=== PATIENT | male | born 1965 | race Caucasian/White ===

== ENCOUNTER 2018-02-03 21:42 | Emergency (ER) | payer MEDICAID ==
[~2018-02-03] VITALS: Ht 165.1 cm; Wt 102.7 kg
[~2018-02-03 21:42] MED LIST: NO HOME MEDS
[2018-02-03] MEDS ORDERED: KETOROLAC 30 MG/1 ML ONE (22:27)
[2018-02-03] MEDS ORDERED: METHOCARBAMOL 750 MG TABLET ONE (22:27)
[2018-02-03] MEDS ORDERED: METHOCARBAMOL 750 MG TABLET PO ONE (22:30)
[2018-02-03] MEDS ORDERED: KETOROLAC 30 MG/1 ML IM ONE (22:30)
[2018-02-03 23:20] VITALS: BP 138/78
== END 2018-02-03 23:21 | disposition home or self-care (01) ==
LOC: ED 23:20
DX: M62.830 Muscle spasm of back (principal); G89.11 Acute pain due to trauma; I10 Essential (primary) hypertension
CPT/HCPCS: 72072; 73030; 96372; 99284; J1885

== ENCOUNTER 2018-04-24 01:42 | Emergency (ER) | payer MEDICAID ==
[~2018-04-24] VITALS: Ht 165.1 cm; Wt 100.0 kg
[2018-04-24 01:44] VITALS: BP 175/102
[2018-04-24 03:09] LABS: BASOPHILS # (AUTO) 0.07 x10^3/uL (0-0.1); BASOPHILS % (AUTO) 0 % (0-1); EOSINOPHILS # (AUTO) 0.11 x10^3/uL (0-0.4); EOSINOPHILS % (AUTO) 1 % (1-7); LYMPHOCYTES # (AUTO) 2.19 x10^3/uL (1-3.4); LYMPHOCYTES % (AUTO) 14 % (22-44); MD NO; MEAN CORPUSCULAR HEMOGLOBIN 31.6 pg (27.5-34.5); MEAN CORPUSCULAR HGB CONC 34.8 g/dL (33.2-36.2); MEAN CORPUSCULAR VOLUME 90.7 fL (81-97); MEAN PLATELET VOLUME 8.9 fL (7.4-10.4); MONOCYTES # (AUTO) 1.44 x10^3/uL (0.2-0.8); MONOCYTES % (AUTO) 9 % (2-9); NEUTROPHILS % (AUTO) 76 % (42-75); PLATELET COUNT 167 x10^3/uL (130-400); RED BLOOD COUNT 4.78 x10^6/uL (4.38-5.82); RED CELL DISTRIBUTION WIDTH 13.5 % (9.4-14.8)
[2018-04-24 03:21] LABS: ALANINE AMINOTRANSFERASE 72 U/L (12-78); ALBUMIN 2.7 g/dL (3.4-5.0); ANION GAP 6 mmol/L (5-15); CALCIUM 8.1 mg/dL (8.5-10.1); CHLORIDE 106 mmol/L (98-107); CREATININE 0.83 mg/dL (0.7-1.3)
[2018-04-24 03:23] LABS: ALKALINE PHOSPHATASE 100 U/L (45-117); BILIRUBIN,TOTAL 0.4 mg/dL (0.2-1.0); TOTAL PROTEIN 7.6 g/dL (6.4-8.2)
[2018-04-24] MEDS ORDERED: ONDANSETRON 2MG/ML, 2ML IVPush PRN (05:00)
[2018-04-24] MEDS ORDERED: CLINDAMYCIN PMX 600MG/50ML 50 ML IV ONE (05:00)
== END 2018-04-24 04:54 | disposition left against medical advice (07) ==
LOC: ED 04:48
DX: L03.115 Cellulitis of right lower limb (principal); I10 Essential (primary) hypertension; D72.829 Elevated white blood cell count, unspecified; F17.200 Nicotine dependence, unspecified, uncomplicated
CPT/HCPCS: 36415; 80053; 85025; 87040; 99285

== ENCOUNTER 2018-05-07 10:55 | Emergency (ER) | payer MEDICAID ==
[~2018-05-07] VITALS: Ht 165.1 cm; Wt 103.2 kg
[2018-05-07 12:23] LABS: BASOPHILS # (AUTO) 0.16 x10^3/uL (0-0.1); BASOPHILS % (AUTO) 2 % (0-1); EOSINOPHILS # (AUTO) 0.19 x10^3/uL (0-0.4); EOSINOPHILS % (AUTO) 2 % (1-7); LYMPHOCYTES # (AUTO) 2.63 x10^3/uL (1-3.4); LYMPHOCYTES % (AUTO) 27 % (22-44); MD NO; MEAN CORPUSCULAR HEMOGLOBIN 30.5 pg (27.5-34.5); MEAN CORPUSCULAR HGB CONC 33.8 g/dL (33.2-36.2); MEAN CORPUSCULAR VOLUME 90.2 fL (81-97); MEAN PLATELET VOLUME 8.4 fL (7.4-10.4); MONOCYTES # (AUTO) 1.29 x10^3/uL (0.2-0.8); MONOCYTES % (AUTO) 13 % (2-9); NEUTROPHILS # (AUTO) 5.43 x10^3/uL (1.8-6.8); NEUTROPHILS % (AUTO) 56 % (42-75); PLATELET COUNT 242 x10^3/uL (130-400); RED BLOOD COUNT 4.86 x10^6/uL (4.38-5.82); RED CELL DISTRIBUTION WIDTH 13.8 % (9.4-14.8)
[2018-05-07 12:36] LABS: ALBUMIN 2.7 g/dL (3.4-5.0); ANION GAP 5 mmol/L (5-15); CALCIUM 8.6 mg/dL (8.5-10.1); CHLORIDE 107 mmol/L (98-107); CREATININE 1.03 mg/dL (0.7-1.3)
[2018-05-07] MEDS ORDERED: CEFTRIAXONE 1,000 MG IM ONE (13:00)
[2018-05-07 13:03] VITALS: BP 155/101
== END 2018-05-07 13:08 | disposition home or self-care (01) ==
LOC: ED 13:02
DX: L03.115 Cellulitis of right lower limb (principal); L03.116 Cellulitis of left lower limb; I10 Essential (primary) hypertension
CPT/HCPCS: 36415; 80048; 82040; 85025; 99284

== ENCOUNTER 2018-07-17 19:44 | Emergency (ER) | payer MEDICAID ==
[~2018-07-17] VITALS: Ht 165.1 cm; Wt 109.3 kg
[2018-07-17 19:50] VITALS: BP 178/94
[2018-07-17] MEDS ORDERED: KETOROLAC 30 MG/1 ML ONE (20:15)
[2018-07-17] MEDS ORDERED: KETOROLAC 30 MG/1 ML IM ONE (20:30)
== END 2018-07-17 21:16 | disposition home or self-care (01) ==
LOC: ED 20:20
DX: M77.11 Lateral epicondylitis, right elbow (principal); Z88.0 Allergy status to penicillin; X58.XXXA Exposure to other specified factors, initial encounter; I10 Essential (primary) hypertension; Y93.89 Activity, other specified; Y99.8 Other external cause status; Y92.009 Unspecified place in unspecified non-institutional (private) residence as the place of occurrence of the external cause
CPT/HCPCS: 73080; 96372; 99284; J1885

== ENCOUNTER 2018-10-29 17:07 | Emergency (ER) | payer MEDICAID ==
[~2018-10-29] VITALS: Ht 170.2 cm; Wt 110.0 kg
[2018-10-29 17:23] VITALS: BP 164/110
--- NOTE | 2018-10-29 17:32 | NUR ---
NORBERT SMALL, AT BEDSIDE TO EVALUATE PT.
--- NOTE | 2018-10-29 17:39 | NUR ---
PT TO IMAGING, WITH TECH, VIA WHEELCHAIR.
[2018-10-29] MEDS ORDERED: KETOROLAC 30 MG/1 ML IM ONE (18:00)
[2018-10-29] MEDS ORDERED: METHOCARBAMOL 750 MG TABLET PO ONE (18:00)
[2018-10-29] MEDS ORDERED: METHOCARBAMOL 750 MG TABLET ONE (18:02)
[2018-10-29] MEDS ORDERED: KETOROLAC 30 MG/1 ML ONE (18:02)
[2018-10-29] MEDS ORDERED: IBUP-1222 PO (18:08)
[2018-10-29] MEDS ORDERED: TRIA15CR3 TP (18:08)
[2018-10-29] MEDS ORDERED: HYDR25TA6 PO (18:08)
== END 2018-10-29 18:25 | disposition home or self-care (01) ==
LOC: ED 18:19
DX: S16.1XXA Strain of muscle, fascia and tendon at neck level, initial encounter (principal); M76.61 Achilles tendinitis, right leg; I10 Essential (primary) hypertension; F17.200 Nicotine dependence, unspecified, uncomplicated; X58.XXXA Exposure to other specified factors, initial encounter; Y93.89 Activity, other specified; Y92.89 Other specified places as the place of occurrence of the external cause; Y99.8 Other external cause status
CPT/HCPCS: 72050; 73650; 96372; 99283; J1885

== ENCOUNTER 2018-12-21 07:36 | Inpatient (IN) | payer MEDICAID ==
[~2018-12-21] VITALS: Ht 165.1 cm; Wt 111.5 kg
[~2018-12-21 07:36] MED LIST changes: +HYDR25TA6 PO; +IBUP-1222 PO; +TRIA15CR3 TP
[2018-12-21] MEDS ORDERED: ACETAMINOPHEN 500 MG TABLET PO ONE (08:30)
[2018-12-21] MEDS ORDERED: KETOROLAC 30 MG/1 ML IM ONE (08:30)
[2018-12-21] MEDS ORDERED: ACETAMINOPHEN 500 MG TABLET ONE (08:35)
[2018-12-21] MEDS ORDERED: KETOROLAC 30 MG/1 ML ONE ×2 (08:35→16:55)
--- NOTE | 2018-12-21 08:55 | NUR ---
PT PRESENTS TO ED WITH C/O 'PAIN ALL OVER' SINCE LAST PM. PT DENIES ANY AGGREVATING INJURY, REPORTS + METH USE YESTERDAY. IV ESTABLISHED, MEDICATED WITH IM TORADOL ORDERED. NOTED REDNESS AND HEAT TO LOWED EXT X 2. SPO2 90% ON ROOM AIR, INCREASED TO 95% WITH SUPPLEMENTAL 02. CALL LIGHT WITHIN REACH, SIDE RAILS UP X 2.
[2018-12-21 09:00] LABS: MEAN CORPUSCULAR HEMOGLOBIN 30.2 pg (27.5-34.5); MEAN CORPUSCULAR HGB CONC 33.7 g/dL (33.2-36.2); MEAN CORPUSCULAR VOLUME 89.6 fL (81-97); MEAN PLATELET VOLUME 9.2 fL (7.4-10.4); PLATELET COUNT 129 x10^3/uL (130-400); RED BLOOD COUNT 5.76 x10^6/uL (4.38-5.82); RED CELL DISTRIBUTION WIDTH 13.9 % (9.4-14.8)
[2018-12-21] MEDS ORDERED: SODIUM CHLORIDE 0.9% 1,000ML IVBOLUS ONE (09:00)
[2018-12-21 09:15] LABS: ALANINE AMINOTRANSFERASE 107 U/L (12-78); ALBUMIN 3.2 g/dL (3.4-5.0); ANION GAP 7 mmol/L (5-15); CHLORIDE 103 mmol/L (98-107); CREATININE 1.09 mg/dL (0.7-1.3)
[2018-12-21 09:17] LABS: ALKALINE PHOSPHATASE 98 U/L (45-117); TOTAL PROTEIN 8.2 g/dL (6.4-8.2)
[2018-12-21 09:39] LABS: MICROSCOPIC NOT IND
[2018-12-21 09:45] LABS: CULTURE INDICATED? NO
--- NOTE | 2018-12-21 10:00 | NUR ---
RECEIVED REPORT FROM KATE Vee RN. PT RESTING IN BED IN NAD. WAITING FOR FLU RESULT.
[2018-12-21 10:05] LABS: MD YES
[2018-12-21 10:11] LABS: <PLATELET ESTIMATE> DECREASED; <PLT MORPHOLOGY> NORMAL PLT MORPH; <RBC MORPHOLOGY> NORMAL; BAND#(MANUAL) 4.02 x10^3/uL; BANDS%(MANUAL) 15 % (0-7); LYMPHS% (MANUAL) 3 % (22-44); MONOS#(MANUAL) 1.61 x10^3/uL (0.3-2.7); MONOS% (MANUAL) 6 % (2-9); SEG#(MANUAL) 20.37 x10^3/uL (1.8-6.8); SEGS% (MANUAL) 76 % (42-75)
[2018-12-21 10:14] LABS: RAPID INFLUENZA A Negative (Negative); RAPID INFLUENZA B Negative (Negative)
--- NOTE | 2018-12-21 10:37 | NUR ---
CHART UP FOR MD RECHECK. PT AWARE.
[2018-12-21] MEDS ORDERED: VANCOMYCIN 1,600 MG in SODIUM CHLORIDE 0.9% 250 ML IV ONE (11:00)
[2018-12-21] MEDS ORDERED: CEFTRIAXONE PMX 1GM/50ML 50 ML IV ONE (11:00)
[2018-12-21] MEDS ORDERED: VANCOMYCIN PER PHARMACY MC ONE (11:00)
[2018-12-21] MEDS ORDERED: CEFTRIAXONE PMX 1GM/50ML 50 ML ONE (11:07)
[2018-12-21 11:14] LABS: AMPHETAMINE SCREEN, URINE Positive (Negative); BARBITURATE SCREEN, URINE Negative (Negative); BENZODIAZEPINE SCREEN, URINE Negative (Negative); CANNABINOID SCREEN, URINE Negative (Negative); COCAINE SCREEN, URINE Negative (Negative); METHADONE SCREEN, URINE Negative (Negative); OPIATE SCREEN, URINE Negative (Negative)
--- NOTE | 2018-12-21 11:14 | NUR ---
ANTIBIOTICS STARTED AFTER BLOOD CULTURES X 2 WERE DRAWN. PT SLEEPING IN NAD, BUT ASKING FOR FOOD WHEN AWOKEN.
--- NOTE | 2018-12-21 11:34 | NUR ---
PT TO CT. WILL WAIT FOR CT RESULTS BEFORE PT CAN EAT.
[2018-12-21] MEDS ORDERED: OMNIPAQUE 350 MG/ML, 100ML BOTTLE ONE (11:43)
--- NOTE | 2018-12-21 11:51 | NUR ---
PT BACK FROM CT. IV HAD BACKFLOWED AND ROCEPHIN HAD STOPPED. IV FLUSHED AND ROCEPHIN RUNNING AGAIN.
[2018-12-21] MEDS ORDERED: KETOROLAC 30 MG/1 ML IM PRN (12:00)
[2018-12-21] MEDS ORDERED: ACETAMINOPHEN 325 MG TABLET PO PRN (12:00)
[2018-12-21] MEDS ORDERED: BACLOFEN 10 MG TABLET PO PRN (12:00)
[2018-12-21] MEDS ORDERED: hydrALAzine 20 MG/ML, 1ML IVPush PRN (12:00)
[2018-12-21 12:59] LABS: CREATINE KINASE, TOTAL 123 U/L (39-308); TROPONIN I < 0.015 ng/mL (0.000-0.045)
--- NOTE | 2018-12-21 13:30 | NUR ---
PT GIVEN MEAL TRAY. WAITING FOR MEDICAL BED.
[2018-12-21 13:44] LABS: HCT (SEDRATE) 51.6 % (39.2-51.8)
--- NOTE | 2018-12-21 14:00 | NUR ---
PT GIVEN BEAR PAW TO KEEP WARM. TEMP WAS 97.9.
[2018-12-21] MEDS: D5%-0.45NACL+KCL 20MEQ 1,000 ML IV SCH (15:32)
[2018-12-21] MEDS ORDERED: hydrALAzine 20 MG/ML, 1ML ONE (15:37)
--- NOTE | 2018-12-21 15:40 | NUR ---
PT MEDICATED FOR BP OF 183/105. US BEING DONE AT BEDSIDE. PT DENIES ANY PAIN AT THIS TIME.
--- NOTE | 2018-12-21 16:20 | NUR ---
REPOR TO KATE Vee RN FOR ENRIQUE BRIONES.
[2018-12-21] MEDS ORDERED: ENOXAPARIN 40 MG/0.4 ML ONE (16:48)
[2018-12-21] MEDS ORDERED: ACETAMINOPHEN 325 MG TABLET ONE (16:55)
--- NOTE | 2018-12-21 16:59 | NUR ---
PT MEDICATED FOR FEVER AND PAIN. BP 160/83 AFTER HYDRALAZINE.
[2018-12-21] MEDS ORDERED: ENOXAPARIN 40 MG/0.4 ML SQ SCH (17:00)
--- NOTE | 2018-12-21 17:29 | NUR ---
ATTEMPTED TO CALL REPORT BUT RN DISCHARGING ANOTHER PT.
[2018-12-21] MEDS ORDERED: KETOROLAC 30 MG/1 ML IV PRN (18:00)
[2018-12-21 18:11] LABS: TROPONIN I < 0.015 ng/mL (0.000-0.045)
[2018-12-21 19:15] VITALS: BP 115/75
[2018-12-21 21:33] VITALS: BP 115/75
[2018-12-22] MEDS: D5%-0.45NACL+KCL 20MEQ 1,000 ML IV SCH (01:07)
[2018-12-22 01:42] VITALS: BP 137/78
[2018-12-22 06:02] LABS: MEAN CORPUSCULAR HEMOGLOBIN 30.8 pg (27.5-34.5); MEAN CORPUSCULAR HGB CONC 34.3 g/dL (33.2-36.2); MEAN PLATELET VOLUME 9.2 fL (7.4-10.4); PLATELET COUNT 111 x10^3/uL (130-400); RED BLOOD COUNT 5.18 x10^6/uL (4.38-5.82); RED CELL DISTRIBUTION WIDTH 14.1 % (9.4-14.8)
[2018-12-22 06:18] LABS: TROPONIN I < 0.015 ng/mL (0.000-0.045)
[2018-12-22 06:19] LABS: CHLORIDE 106 mmol/L (98-107)
[2018-12-22 06:25] LABS: ALANINE AMINOTRANSFERASE 69 U/L (12-78); ALBUMIN 2.4 g/dL (3.4-5.0); ALKALINE PHOSPHATASE 90 U/L (45-117); ANION GAP 4 mmol/L (5-15); BILIRUBIN,TOTAL 0.7 mg/dL (0.2-1.0)
[2018-12-22 06:31] LABS: MD YES
[2018-12-22 06:35] LABS: BAND#(MANUAL) 0.85 x10^3/uL; BANDS%(MANUAL) 4 % (0-7); LYMPH#(MANUAL) 1.06 x10^3/uL (1-3.4); LYMPHS% (MANUAL) 5 % (22-44); MONOS#(MANUAL) 0.85 x10^3/uL (0.3-2.7); MONOS% (MANUAL) 4 % (2-9); SEG#(MANUAL) 18.44 x10^3/uL (1.8-6.8); SEGS% (MANUAL) 87 % (42-75)
[2018-12-22 06:36] LABS: <PLATELET ESTIMATE> DECREASED; <PLT MORPHOLOGY> NORMAL PLT MORPH; <RBC MORPHOLOGY> NORMAL
[2018-12-22] MEDS ORDERED: AMPICILLIN/SULBACTAM 3 GM in SODIUM CHLORIDE 0.9% 100 ML IV SCH (07:30)
[2018-12-22 08:00] VITALS: BP 136/84
[2018-12-22] MEDS: SODIUM CHLORIDE 0.9% 1,000 ML IV SCH ×2 (08:24→23:10)
[2018-12-22] MEDS: AMPICILLIN/SULBACTAM 3 GM in SODIUM CHLORIDE 0.9% 50 ML IV SCH ×3 (08:25→19:36)
[2018-12-22] MEDS: HEPARIN 5,000 UNITS/ML, 1ML SQ SCH ×3 (08:25→23:10)
[2018-12-22] MEDS: GUAIFENESIN 200 MG TABLET PO SCH ×2 (08:25→19:36)
[2018-12-22] MEDS ORDERED: KETOROLAC 30 MG/1 ML IV PRN (12:00)
[2018-12-22] MEDS: NICOTINE 14MG/24 HR PATCH.TD24 TD SCH ×2 (12:22→13:51)
[2018-12-22 14:50] VITALS: BP 132/81
[2018-12-22] MEDS: CARVEDILOL 3.125 MG TABLET PO SCH (16:47)
[2018-12-22] MEDS: ACETAMINOPHEN 325 MG TABLET PO PRN (16:48)
[2018-12-22 18:54] VITALS: BP 134/83
[2018-12-23 01:47] VITALS: BP 159/97
[2018-12-23] MEDS: AMPICILLIN/SULBACTAM 3 GM in SODIUM CHLORIDE 0.9% 50 ML IV SCH ×4 (02:05→20:07)
[2018-12-23] MEDS: CARVEDILOL 3.125 MG TABLET PO SCH (06:20)
[2018-12-23 06:21] LABS: ALBUMIN 2.4 g/dL (3.4-5.0); BILIRUBIN, DIRECT 0.1 mg/dL (0.1-0.2)
[2018-12-23] MEDS: ACETAMINOPHEN 325 MG TABLET PO PRN ×2 (06:22→15:24)
[2018-12-23 06:23] LABS: BILIRUBIN,INDIRECT 0.3 mg/dL (0.0-2.0); BILIRUBIN,TOTAL 0.4 mg/dL (0.2-1.0); TOTAL PROTEIN 7.4 g/dL (6.4-8.2)
[2018-12-23 06:27] LABS: BASOPHILS % (AUTO) 0 % (0-1); EOSINOPHILS # (AUTO) 0.18 x10^3/uL (0-0.4); EOSINOPHILS % (AUTO) 1 % (1-7); LYMPHOCYTES # (AUTO) 1.53 x10^3/uL (1-3.4); LYMPHOCYTES % (AUTO) 11 % (22-44); MD NO; MEAN CORPUSCULAR HEMOGLOBIN 30.8 pg (27.5-34.5); MEAN CORPUSCULAR HGB CONC 33.9 g/dL (33.2-36.2); MEAN CORPUSCULAR VOLUME 90.7 fL (81-97); MEAN PLATELET VOLUME 9.5 fL (7.4-10.4); MONOCYTES # (AUTO) 1.26 x10^3/uL (0.2-0.8); MONOCYTES % (AUTO) 9 % (2-9); NEUTROPHILS # (AUTO) 10.81 x10^3/uL (1.8-6.8); NEUTROPHILS % (AUTO) 78 % (42-75); PLATELET COUNT 125 x10^3/uL (130-400); RED BLOOD COUNT 5.21 x10^6/uL (4.38-5.82)
[2018-12-23] MEDS: HEPARIN 5,000 UNITS/ML, 1ML SQ SCH ×3 (07:30→21:22)
[2018-12-23 07:32] VITALS: BP 160/106
[2018-12-23] MEDS: GUAIFENESIN 200 MG TABLET PO SCH ×2 (08:54→21:21)
[2018-12-23] MEDS: SODIUM CHLORIDE 0.9% 1,000 ML IV SCH (13:10)
[2018-12-23 13:50] VITALS: BP 168/116
[2018-12-23] MEDS ORDERED: CARVEDILOL 6.25 MG TABLET ONE (15:05)
[2018-12-23] MEDS: CARVEDILOL 6.25 MG TABLET PO SCH (15:24)
[2018-12-23 18:55] VITALS: BP 144/101
[2018-12-24] MEDS: AMPICILLIN/SULBACTAM 3 GM in SODIUM CHLORIDE 0.9% 50 ML IV SCH ×2 (02:55→09:55)
[2018-12-24] MEDS: CARVEDILOL 6.25 MG TABLET PO SCH (06:16)
[2018-12-24] MEDS: HEPARIN 5,000 UNITS/ML, 1ML SQ SCH (07:30)
[2018-12-24 08:23] LABS: BASOPHILS # (AUTO) 0.04 x10^3/uL (0-0.1); BASOPHILS % (AUTO) 0 % (0-1); EOSINOPHILS # (AUTO) 0.18 x10^3/uL (0-0.4); EOSINOPHILS % (AUTO) 2 % (1-7); LYMPHOCYTES # (AUTO) 1.53 x10^3/uL (1-3.4); LYMPHOCYTES % (AUTO) 13 % (22-44); MD NO; MEAN CORPUSCULAR HEMOGLOBIN 30.5 pg (27.5-34.5); MEAN CORPUSCULAR VOLUME 89.8 fL (81-97); MEAN PLATELET VOLUME 8.6 fL (7.4-10.4); MONOCYTES # (AUTO) 0.89 x10^3/uL (0.2-0.8); MONOCYTES % (AUTO) 8 % (2-9); NEUTROPHILS # (AUTO) 8.75 x10^3/uL (1.8-6.8); NEUTROPHILS % (AUTO) 77 % (42-75); PLATELET COUNT 141 x10^3/uL (130-400); RED BLOOD COUNT 5.67 x10^6/uL (4.38-5.82); RED CELL DISTRIBUTION WIDTH 13.8 % (9.4-14.8)
[2018-12-24 08:34] LABS: ALBUMIN 2.5 g/dL (3.4-5.0); ANION GAP 5 mmol/L (5-15); CALCIUM 8.6 mg/dL (8.5-10.1); CHLORIDE 107 mmol/L (98-107)
[2018-12-24 08:38] LABS: ALANINE AMINOTRANSFERASE 93 U/L (12-78); ALKALINE PHOSPHATASE 102 U/L (45-117); BILIRUBIN,TOTAL 0.6 mg/dL (0.2-1.0); CREATININE 0.73 mg/dL (0.7-1.3); TOTAL PROTEIN 7.7 g/dL (6.4-8.2)
[2018-12-24] MEDS: GUAIFENESIN 200 MG TABLET PO SCH (09:55)
[2018-12-24 10:00] VITALS: BP 161/107
[2018-12-24] MEDS ORDERED: CARV6.2512 PO (11:19)
[2018-12-24] MEDS ORDERED: AMOX1TAB64 PO (11:19)
[2018-12-24] MEDS ORDERED: NICO-486 TD (11:19)
[2018-12-24] MEDS ORDERED: SACC250C8 PO (11:19)
[2018-12-24] MEDS ORDERED: DOXY100T10 PO (11:19)
== END 2018-12-24 11:36 | disposition left against medical advice (07) | DRG 603 ==
LOC: ED 08:21 → EDIP 11:36 → 3NE 17:58
PROVIDERS: ADMIT Hospitalist; ATTEND Hospitalist
DX: L03.115 Cellulitis of right lower limb (principal); J98.11 Atelectasis; R65.10 Systemic inflammatory response syndrome (SIRS) of non-infectious origin without acute organ dysfunction; Z68.41 Body mass index [BMI] 40.0-44.9, adult; B19.20 Unspecified viral hepatitis C without hepatic coma; D69.6 Thrombocytopenia, unspecified; E66.01 Morbid (severe) obesity due to excess calories; F15.10 Other stimulant abuse, uncomplicated; F17.210 Nicotine dependence, cigarettes, uncomplicated; G47.00 Insomnia, unspecified; I10 Essential (primary) hypertension; K76.0 Fatty (change of) liver, not elsewhere classified; N20.0 Calculus of kidney; D72.825 Bandemia; Z63.8 Other specified problems related to primary support group
CPT/HCPCS: 36415; 71045; 74177; 80053; 80074; 80076; 80307; 81003; 82550; 83605; 83735; 84145; 84484; 85025; 85651; 87040; 87400; 87521; 87522; 87806; 93005; 93970; 96361; 96365; 96366; 96367; 96372; 96375; G0378; J0295; J0696; J1644; J1650; J1885; J3370; Q9967; G0475; J0360; J3480; J7030; J7050

== ENCOUNTER 2019-01-03 09:03 | Emergency (ER) | payer MEDICAID ==
[~2019-01-03] VITALS: Ht 165.1 cm; Wt 112.0 kg
[~2019-01-03 09:03] MED LIST changes: +AMOX1TAB64 PO; +CARV6.2512 PO; +DOXY100T10 PO; +NICO-486 TD; +SACC250C8 PO
--- NOTE | 2019-01-03 09:11 | NUR ---
Pt ambulated to room from triage with steady gait and balance.
--- NOTE | 2019-01-03 09:50 | NUR ---
Pt resting on gurney connected to NIBP and continous pulse ox. NADN. Pt waiting for lab results and for ultrasound. All safety measures in place. No needs at this time expressed. Call light within reach.
[2019-01-03 09:54] LABS: BASOPHILS # (AUTO) 0.03 x10^3/uL (0-0.1); BASOPHILS % (AUTO) 0 % (0-1); EOSINOPHILS # (AUTO) 0.26 x10^3/uL (0-0.4); EOSINOPHILS % (AUTO) 3 % (1-7); LYMPHOCYTES # (AUTO) 2.18 x10^3/uL (1-3.4); LYMPHOCYTES % (AUTO) 25 % (22-44); MD NO; MEAN CORPUSCULAR HGB CONC 33.5 g/dL (33.2-36.2); MEAN CORPUSCULAR VOLUME 89.5 fL (81-97); MEAN PLATELET VOLUME 8.3 fL (7.4-10.4); MONOCYTES # (AUTO) 0.91 x10^3/uL (0.2-0.8); MONOCYTES % (AUTO) 10 % (2-9); NEUTROPHILS % (AUTO) 61 % (42-75); PLATELET COUNT 282 x10^3/uL (130-400); RED BLOOD COUNT 5.05 x10^6/uL (4.38-5.82)
--- NOTE | 2019-01-03 09:58 | NUR ---
Pt transported on gurney to ultrasound.
[2019-01-03 10:05] LABS: ALBUMIN 2.8 g/dL (3.4-5.0); ANION GAP 4 mmol/L (5-15); CALCIUM 8.8 mg/dL (8.5-10.1); CHLORIDE 110 mmol/L (98-107)
[2019-01-03 10:09] LABS: ALANINE AMINOTRANSFERASE 107 U/L (12-78); ALKALINE PHOSPHATASE 90 U/L (45-117); BILIRUBIN,TOTAL 0.4 mg/dL (0.2-1.0); CREATININE 0.79 mg/dL (0.7-1.3); TOTAL PROTEIN 7.6 g/dL (6.4-8.2)
--- NOTE | 2019-01-03 11:23 | NUR ---
Patient given discharge instructions and they have confirmed that they understand the instructions. Patient ambulatory with steady gait. Pt left with all personal belongings.
[2019-01-03 11:24] VITALS: BP 151/94
== END 2019-01-03 11:26 | disposition home or self-care (01) ==
LOC: ED 09:31
DX: L03.115 Cellulitis of right lower limb (principal); I10 Essential (primary) hypertension
CPT/HCPCS: 36415; 80053; 83605; 85025; 99284

== ENCOUNTER 2019-03-14 23:11 | Inpatient (IN) | payer MEDICAID ==
[~2019-03-14] VITALS: Ht 165.1 cm; Wt 115.8 kg
[~2019-03-14 23:11] MED LIST changes: -TRIA15CR3 TP; +TRIA15CR61 TP
[2019-03-15] MEDS ORDERED: ONDANSETRON 2MG/ML, 2ML IVPush ONE
[2019-03-15] MEDS ORDERED: SODIUM CHLORIDE FLUSH 10ML SYR IVF ONE
[2019-03-15] MEDS ORDERED: KETOROLAC 30 MG/1 ML IVPush ONE
[2019-03-15] MEDS ORDERED: MORPHINE SULFATE 4 MG/ML, 1ML IVPush PRN
[2019-03-15] MEDS ORDERED: AMPICILLIN/SULBACTAM 3 GM in SODIUM CHLORIDE 0.9% 100 ML IV ONE
[2019-03-15] MEDS ORDERED: ONDANSETRON 2MG/ML, 2ML ONE (00:24)
[2019-03-15] MEDS ORDERED: MORPHINE SULFATE 4 MG/ML, 1ML ONE (00:24)
[2019-03-15] MEDS ORDERED: VANCOMYCIN 2,200 MG in SODIUM CHLORIDE 0.9% 500 ML IV ONE (00:30)
[2019-03-15 00:39] LABS: MEAN CORPUSCULAR HEMOGLOBIN 30.6 pg (27.5-34.5); MEAN CORPUSCULAR HGB CONC 33.3 g/dL (33.2-36.2); MEAN CORPUSCULAR VOLUME 92.1 fL (81-97); PLATELET COUNT 151 x10^3/uL (130-400); RED BLOOD COUNT 5.52 x10^6/uL (4.38-5.82); RED CELL DISTRIBUTION WIDTH 14.5 % (9.4-14.8)
[2019-03-15] MEDS ORDERED: KETOROLAC 30 MG/1 ML ONE (00:46)
[2019-03-15 00:53] LABS: ALANINE AMINOTRANSFERASE 97 U/L (12-78); ANION GAP 3 mmol/L (5-15); CALCIUM 9.1 mg/dL (8.5-10.1); CHLORIDE 101 mmol/L (98-107); CREATININE 1.05 mg/dL (0.7-1.3)
[2019-03-15 00:55] LABS: ALKALINE PHOSPHATASE 97 U/L (45-117); BILIRUBIN,TOTAL 0.6 mg/dL (0.2-1.0); TOTAL PROTEIN 8.2 g/dL (6.4-8.2)
[2019-03-15] MEDS ORDERED: ONDANSETRON ODT 4 MG PO PRN (01:00)
[2019-03-15] MEDS ORDERED: KETOROLAC 30 MG/1 ML IV PRN (01:00)
[2019-03-15] MEDS ORDERED: VANCOMYCIN PER PHARMACY MC PRN ×2 (01:00)
[2019-03-15] MEDS ORDERED: DOCUSATE 100 MG CAPSULE PO PRN (01:00)
[2019-03-15] MEDS ORDERED: ACETAMINOPHEN 325 MG TABLET PO PRN (01:00)
[2019-03-15] MEDS ORDERED: LABETALOL 5MG/ML, 20ML IVPush PRN (01:00)
[2019-03-15] MEDS ORDERED: SODIUM CHLORIDE 0.9% 1,000ML IVBOLUS ONE ×2 (01:00)
[2019-03-15 01:43] LABS: BASOPHILS # (AUTO) 0.01 x10^3/uL (0-0.1); BASOPHILS % (AUTO) 0 % (0-1); EOSINOPHILS # (AUTO) 0.03 x10^3/uL (0-0.4); EOSINOPHILS % (AUTO) 0 % (1-7); LYMPHOCYTES # (AUTO) 1.83 x10^3/uL (1-3.4); LYMPHOCYTES % (AUTO) 8 % (22-44); MD SCAN; MONOCYTES # (AUTO) 0.71 x10^3/uL (0.2-0.8); MONOCYTES % (AUTO) 3 % (2-9); NEUTROPHILS # (AUTO) 20.11 x10^3/uL (1.8-6.8); NEUTROPHILS % (AUTO) 89 % (42-75)
--- NOTE | 2019-03-15 01:58 | NUR ---
IV TO R AC INFILTRATED AFTER UNASYN INFUSION. NEW US GUIDED IV PLACED TO L UPPER ARM.
[2019-03-15] MEDS ORDERED: ACETAMINOPHEN 325 MG TABLET PO ONE (02:00)
[2019-03-15 03:00] VITALS: BP 130/75
[2019-03-15] MEDS: HEPARIN 5,000 UNITS/ML, 1ML SQ SCH ×3 (05:08→23:23)
[2019-03-15] MEDS: NICOTINE 14MG/24 HR PATCH.TD24 TD SCH (05:09)
[2019-03-15] MEDS ORDERED: PHARMACOKINETIC MONITORING MC PRN (05:30)
[2019-03-15] MEDS ORDERED: PHARMACOKINETIC CONSULTATION MC ONE (05:30)
[2019-03-15 07:44] VITALS: BP 135/80
[2019-03-15] MEDS: AMPICILLIN/SULBACTAM 3 GM in SODIUM CHLORIDE 0.9% 100 ML IV SCH ×3 (09:05→23:21)
[2019-03-15 14:27] VITALS: BP 165/112
[2019-03-15 14:44] VITALS: BP 156/95
[2019-03-15] MEDS: VANCOMYCIN 2,200 MG in SODIUM CHLORIDE 0.9% 500 ML IV SCH (19:19)
[2019-03-15 19:52] VITALS: BP 169/101
[2019-03-15] MEDS ORDERED: ALBUTEROL/IPRATROPIUM 2.5MG/0.5MG, 3 ML ONE (21:21)
[2019-03-15 23:18] VITALS: BP 171/96
[2019-03-15] MEDS: LISINOPRIL 5 MG TABLET PO SCH (23:21)
[2019-03-16] MEDS: NICOTINE 14MG/24 HR PATCH.TD24 TD SCH (01:36)
[2019-03-16 02:00] VITALS: BP 179/107
[2019-03-16 05:19] LABS: MEAN CORPUSCULAR HEMOGLOBIN 30.6 pg (27.5-34.5); MEAN CORPUSCULAR HGB CONC 33.6 g/dL (33.2-36.2); PLATELET COUNT 143 x10^3/uL (130-400); RED BLOOD COUNT 5.02 x10^6/uL (4.38-5.82); RED CELL DISTRIBUTION WIDTH 13.8 % (9.4-14.8)
[2019-03-16 05:26] LABS: ANION GAP 5 mmol/L (5-15); CALCIUM 8.4 mg/dL (8.5-10.1); CHLORIDE 105 mmol/L (98-107); CREATININE 0.83 mg/dL (0.7-1.3)
[2019-03-16 05:37] LABS: MD YES
[2019-03-16 05:41] LABS: <PLATELET ESTIMATE> ADEQUATE; <PLT MORPHOLOGY> NORMAL PLT MORPH; <RBC MORPHOLOGY> NORMAL; BAND#(MANUAL) 0.49 x10^3/uL; BANDS%(MANUAL) 3 % (0-7); EOS#(MANUAL) 0.16 x10^3/uL (0.0-0.4); EOS% (MANUAL) 1 % (1-7); LYMPH#(MANUAL) 1.46 x10^3/uL (1-3.4); LYMPHS% (MANUAL) 9 % (22-44); METAMYELOCYTES# (MANUAL) 0.16 x10^3/uL (0-0); METAMYELOCYTES% (MANUAL) 1 % (0-1); MONOS#(MANUAL) 1.46 x10^3/uL (0.3-2.7); MONOS% (MANUAL) 9 % (2-9); SEG#(MANUAL) 12.47 x10^3/uL (1.8-6.8); SEGS% (MANUAL) 77 % (42-75)
[2019-03-16] MEDS: AMPICILLIN/SULBACTAM 3 GM in SODIUM CHLORIDE 0.9% 100 ML IV SCH ×2 (05:50→10:38)
[2019-03-16 06:30] VITALS: BP 166/103
[2019-03-16] MEDS: HEPARIN 5,000 UNITS/ML, 1ML SQ SCH (08:26)
[2019-03-16] MEDS: LISINOPRIL 5 MG TABLET PO SCH (08:26)
[2019-03-16] MEDS ORDERED: CHLORTHALIDONE 25 MG TABLET PO SCH (11:00)
[2019-03-16] MEDS ORDERED: FUROSEMIDE 20 MG/2 ML IV ONE (12:30)
[2019-03-16 13:31] VITALS: BP 181/106
[2019-03-16] MEDS: VANCOMYCIN 2,200 MG in SODIUM CHLORIDE 0.9% 500 ML IV SCH (13:53)
== END 2019-03-16 16:46 | disposition left against medical advice (07) | DRG 871 ==
LOC: ED 03-15 01:03 → EDIP 03-15 01:43 → 4NOR 03-15 02:18
PROVIDERS: ADMIT Family Medicine; ATTEND Family Medicine
DX: A41.9 Sepsis, unspecified organism (principal); J96.01 Acute respiratory failure with hypoxia; Z68.41 Body mass index [BMI] 40.0-44.9, adult; L03.115 Cellulitis of right lower limb; J98.11 Atelectasis; E66.01 Morbid (severe) obesity due to excess calories; F17.210 Nicotine dependence, cigarettes, uncomplicated; F15.10 Other stimulant abuse, uncomplicated; I10 Essential (primary) hypertension; R65.20 Severe sepsis without septic shock; Z53.21 Procedure and treatment not carried out due to patient leaving prior to being seen by health care provider; A46 Erysipelas; Z79.899 Other long term (current) drug therapy
CPT/HCPCS: 36415; 71045; 80048; 80053; 80307; 83605; 84145; 85025; 87040; 94640; 96365; 96367; 96375; G0378; J0295; J1644; J1885; J3370; J1940; J7030; J7040

== ENCOUNTER 2019-04-23 12:22 | Emergency (ER) | payer MEDICAID ==
[~2019-04-23] VITALS: Ht 165.1 cm; Wt 115.0 kg
[2019-04-23 12:29] VITALS: BP 177/118
== END 2019-04-23 13:14 | disposition home or self-care (01) ==
LOC: ED 13:03
DX: K02.9 Dental caries, unspecified (principal); I10 Essential (primary) hypertension; F17.210 Nicotine dependence, cigarettes, uncomplicated
CPT/HCPCS: 99283

== ENCOUNTER 2020-02-06 14:32 | Inpatient (IN) | payer MEDICAID ==
[~2020-02-06] VITALS: Ht 165.1 cm; Wt 118.7 kg
[~2020-02-06 14:32] MED LIST changes: -DOXY100T10 PO; +DOXY100T23 PO; +ETOMIDATE 20 MG/10 ML ONE; +PROPOFOL 100 ML IV ONE; +ROCURONIUM 10 MG/ML,10ML ONE
[2020-02-06] MEDS ORDERED: NALOXONE 1 MG/ML, 2ML ONE (15:58)
[2020-02-06] MEDS ORDERED: VANCOMYCIN PER PHARMACY MC ONE (16:00)
[2020-02-06] MEDS ORDERED: NALOXONE 1 MG/ML, 2ML IVPush ONE (16:00)
--- NOTE | 2020-02-06 16:37 | NUR ---
TWO US GUIDED PIV ATTEMPTS AT THIS TIME, PT INABILTY TO HOLD STILL AND POOR VENOUS ACCESS IS CREATIGN POOR SUCCESS RATE. MD INFORMED AND AT THIS TIME SINCE MULTIPLE PIVS HAVE BEEN ATTEMTPTED AND INABILTY TO PLACE WITH US. PT TO HAVE CVAD PLACED.
[2020-02-06 16:42] LABS: MEAN CORPUSCULAR HEMOGLOBIN 29.4 pg (27.5-34.5); MEAN CORPUSCULAR HGB CONC 32.1 g/dL (33.2-36.2); MEAN CORPUSCULAR VOLUME 91.6 fL (81-97); MEAN PLATELET VOLUME 9.5 fL (7.4-10.4); PLATELET COUNT 146 x10^3/uL (130-400); RED BLOOD COUNT 6.22 x10^6/uL (4.38-5.82); RED CELL DISTRIBUTION WIDTH 15.1 % (9.4-14.8)
[2020-02-06 16:49] LABS: ALANINE AMINOTRANSFERASE 120 U/L (12-78); ALBUMIN 2.5 g/dL (3.4-5.0); ANION GAP 5 mmol/L (5-15); CALCIUM 8.6 mg/dL (8.5-10.1); CHLORIDE 102 mmol/L (98-107); CREATININE 0.97 mg/dL (0.7-1.3)
[2020-02-06 16:51] LABS: ALKALINE PHOSPHATASE 94 U/L (45-117); BILIRUBIN,TOTAL 0.7 mg/dL (0.2-1.0); TOTAL PROTEIN 8.7 g/dL (6.4-8.2)
[2020-02-06] MEDS ORDERED: VANCOMYCIN 2,400 MG in SODIUM CHLORIDE 0.9% 500 ML IV ONE (17:00)
--- NOTE | 2020-02-06 17:04 | NUR ---
REPORT FROM MAGGIE RN, PT TO GET CVAD 3X RN'S UNABLE TO GET IV. CVAD SET UP READY, AWAITING MD. LABS TO BE REDRAWN FROM CVAD AFTER PLACEMENT
[2020-02-06 17:24] LABS: MD YES
[2020-02-06 17:27] LABS: BAND#(MANUAL) 0.42 x10^3/uL; BANDS%(MANUAL) 3 % (0-7); LYMPHS% (MANUAL) 10 % (22-44); MONOS#(MANUAL) 1.26 x10^3/uL (0.3-2.7); MONOS% (MANUAL) 9 % (2-9); NRBC % (MANUAL) 1 % (0-1); SEG#(MANUAL) 10.92 x10^3/uL (1.8-6.8); SEGS% (MANUAL) 78 % (42-75)
[2020-02-06 17:28] LABS: <PLATELET ESTIMATE> ADEQUATE; <RBC MORPHOLOGY> NORMAL
[2020-02-06 17:29] LABS: <PLT MORPHOLOGY> NORMAL PLT MORPH
[2020-02-06] MEDS ORDERED: LABETALOL 5MG/ML, 20ML ONE (17:47)
--- NOTE | 2020-02-06 18:11 | NUR ---
AT BEDSIDE FOR CENTRAL LINE PLACEMENT, PT UNCOOPERATIVE AND MOVING DURING PROCEDURE STATING "THIS IS THE WORST, I CAN'T SIT STILL, NO" AND SHAKING HEAD WHILE MD ATTEMPTING IJ CENTRAL LINE. MD ABLE TO OBTAIN LINE DESPITE PT MOVEMENT, XRAY ORDERED FOR LINE CONFIRMATION.
[2020-02-06] MEDS: LABETALOL 5MG/ML, 20ML IVPush PRN ×3 (18:15→20:47)
--- NOTE | 2020-02-06 18:52 | NUR ---
LATE ENTRY: ENTERED PT ROOM AT 1840 AND PT HAD REMOVED OXYGEN AND MONITORS STATING "OPAL BEEN TELLING YOU I NEED FOOD FOR 5 HOURS, I'M HUNGRY, I'M LEAVING" PT EDUCATED HE HAS A CENTRAL LINE IN HIS NECK WHICH HAS A HEMATOMA AND THAT HE IS AT RISK OF IF HE LEAVES, PT CURRENTLY INTOXICATED AND OXYGEN LOW BECAUSE PT REMOVED IT. MERCHANDISER RETAIL REPRESENTATIVE, IRON WORKER AND ED DOC NOTIFIED. MERCHANDISER RETAIL REPRESENTATIVE ATTEMPTED TO TALK TO PT, PT BECAME COMBATIVE WITH STAFF, SECURITY CALLED AND PT RESTRAINED PT HARM TO SELF AND OTHERS, PT PLACED IN 4 POINT RESTRAINTS. PT ORDERED DIET TRAY AND PLACED IN T4
--- NOTE | 2020-02-06 19:15 | NUR ---
PT SLEEPING IN MD STEVEN NOTIFIED OF BP. PT PERIODICALLY WAKES UP AND SAYS "I WANT FOOD" THEN FALLS BACK ASLEEP.
--- NOTE | 2020-02-06 19:26 | NUR ---
ASSUMED CARE AT THIS TIME. PT SCREAMING "FOOD! FOOD! FOOD!" PT WAS EXPLAINED FOOD HAS BEEN ORDERED BUT HAS NOT ARRIVED YET. PT THRASHING ABOUT IN BED, UNABLE TO REASON WITH PT AT THIS TIME. PHARM WAS CALLED ABOUT VANCO, THEY WILL SEND. PER REPORT FROM PRIOR RN ABX DELAYED DUE TO PTS BEING A DIFFICULT IV STICK AND HIS POLYNONCOMPLIANCE THROUGHOUT HIS STAY.
[2020-02-06] MEDS ORDERED: LORazepam 2 MG/ML, 1ML IVPush ONE ×2 (19:30→23:30)
--- NOTE | 2020-02-06 19:32 | NUR ---
PT GIVEN MEAL TRAY. PT AGREEABLE TO CONTROL HIS BEHAVIOR, TWO RESTRAINTS REMOVED SO PT CAN EAT. RUE AND LLE RELEASED.
[2020-02-06] MEDS ORDERED: LORazepam 2 MG/ML, 1ML ONE ×2 (19:34→21:07)
--- NOTE | 2020-02-06 19:47 | NUR ---
PT OUT OF RESTRAINTS AT THIS TIME. PT SLEEPING
[2020-02-06] MEDS ORDERED: hydrALAzine 20 MG/ML, 1ML IVPush PRN ×2 (20:00→21:30)
[2020-02-06] MEDS ORDERED: CEFTRIAXONE PMX 1GM/50ML 50 ML IVPB ONE (20:00)
--- NOTE | 2020-02-06 20:19 | NUR ---
ULTRASOUND HAS COMPLETED EXAM AT THIS TIME.
[2020-02-06] MEDS ORDERED: CEFTRIAXONE PMX 1GM/50ML 50 ML ONE (20:41)
--- NOTE | 2020-02-06 20:45 | NUR ---
TP RN: PER DR. COLE PT. TO BE COVID R/O.
--- NOTE | 2020-02-06 21:05 | NUR ---
PT SHOWING INCREASED AGITATION. PT CONSTANTLY REMOVING OXYGEN. CIWA PROTOCOL REQUESTED TO HOSPITALIST. PT URINATED ON HIMSELF. PT REFUSING LINEN CHANGE AT THIS TIME.
--- NOTE | 2020-02-06 21:13 | NUR ---
STILL AWITING CIWA ORDERS. FOUND [facility] AND SHOWED HOSPITALIST PTS AGITATION. SHE STATES GIVE 1MG ATIVAN NOW. 1MG ATIVAN GIVEN AT THIS TIME. PT CONTINUES TO REMOVE HIS OXYGEN AND WILL DE-SAT INTO THE 60S
--- NOTE | 2020-02-06 21:24 | NUR ---
DISCUSSED ONGOING AGITATION WITH HOSPITALIST AGAIN. STAT ABG TO BE ORDERED AND LIKELY ADMIT TO ICU. STILL AWAITING [facility] PROTOCOL FOR DOCUMENTATION
[2020-02-06] MEDS ORDERED: morphine SULFATE 10 MG/ML, 1ML IVPush PRN (21:30)
[2020-02-06] MEDS ORDERED: ONDANSETRON 2MG/ML, 2ML IVPush PRN (21:30)
[2020-02-06] MEDS ORDERED: LABETALOL 5MG/ML, 20ML IVPush PRN (21:30)
[2020-02-06] MEDS ORDERED: GABAPENTIN 300 MG CAPSULE PO PRN (21:30)
[2020-02-06] MEDS ORDERED: VANCOMYCIN PER PHARMACY MC PRN (21:30)
[2020-02-06] MEDS ORDERED: THIAMINE 200 MG in SODIUM CHLORIDE 0.9% 50 ML IV ONE (21:30)
--- NOTE | 2020-02-06 21:45 | NUR ---
REQUESTED CONSULT FROM DR PERRY DUE TO PTS DETERIORATING STATUS. HE IS AGREEABLE TO JOIN THE CASE.
--- NOTE | 2020-02-06 22:26 | NUR ---
INTUBATED AT [address] PERRY. 8.0 ET TUBE. 22 AT THE LIP. OFG PLACED. EDWARDS PLACED.
[2020-02-06 22:36] LABS: TROPONIN I 0.235 ng/mL (0.000-0.045)
[2020-02-06] MEDS ORDERED: ENOXAPARIN 40 MG/0.4 ML ONE (22:36)
[2020-02-06] MEDS ORDERED: CALCIUM GLUCONATE 4.6 MEQ/10 ML ONE (22:36)
[2020-02-06] MEDS: AMPICILLIN/SULBACTAM 3 GM in SODIUM CHLORIDE 0.9% 100 ML IV SCH (22:43)
--- NOTE | 2020-02-06 22:44 | NUR ---
report to lee at this time
[2020-02-06] MEDS: ENOXAPARIN 30 MG/0.3 ML SQ SCH (22:47)
[2020-02-06] MEDS ORDERED: CALCIUM GLUCONATE 4.6 MEQ in SODIUM CHLORIDE 0.9% 50 ML IV ONE (23:00)
--- NOTE | 2020-02-06 23:22 | NUR ---
PULMONOLOGY DISCUSSING POC WIH DR PERRY.
[2020-02-06] MEDS ORDERED: NOREPINEPHRINE 8 MG in SODIUM CHLORIDE 0.9% 242 ML IV PRN (23:23)
[2020-02-06] MEDS ORDERED: SENNA/DOCUSATE TABLET NG PRN (23:30)
[2020-02-06] MEDS ORDERED: ALBUTEROL/IPRATROPIUM 2.5MG/0.5MG, 3 ML INLINE SCH (23:30)
[2020-02-06] MEDS ORDERED: ROCURONIUM 10 MG/ML,10ML IVPush ONE (23:30)
[2020-02-06] MEDS ORDERED: HEPARIN 5,000 UNITS/ML, 1ML SQ SCH (23:30)
[2020-02-06] MEDS ORDERED: DEXTROSE 4 GM TAB.CHEW PO PRN (23:30)
[2020-02-06] MEDS: SODIUM CHLORIDE FLUSH 10ML SYR IVF SCH (23:30)
[2020-02-06] MEDS ORDERED: ETOMIDATE 20 MG/10 ML IVPush ONE (23:30)
[2020-02-06] MEDS ORDERED: DEXTROSE 50%, 50ML SYRINGE IVPush PRN (23:30)
[2020-02-06] MEDS ORDERED: PHARMACY MAY ADJ FOR RENAL FX MC SCH (23:30)
[2020-02-06] MEDS ORDERED: GLUCAGON 1 MG IM PRN (23:30)
[2020-02-06] MEDS ORDERED: BISACODYL 10 MG SUPP PR PRN (23:30)
[2020-02-06] MEDS ORDERED: LIDOCAINE-MPF 1%, 2ML ENDO PRN (23:30)
[2020-02-06] MEDS ORDERED: SENNA 176 MG/5 ML ORAL SOL NG PRN (23:30)
[2020-02-06] MEDS: PROPOFOL 100 ML IV PRN (23:49)
[2020-02-07 00:22] LABS: MICROSCOPIC INDICATED
--- NOTE | 2020-02-07 00:23 | NUR ---
PT DIFFICULT TO SEDATE. TITRATING TO EFFECT, HOWEVER BP NOW LOW INTERMITTENTLY. LEVOPHED REQUESTED FROM PHARM.
[2020-02-07 00:26] LABS: AMPHETAMINE SCREEN, URINE Positive (Negative); BARBITURATE SCREEN, URINE Negative (Negative); BENZODIAZEPINE SCREEN, URINE Negative (Negative); CANNABINOID SCREEN, URINE Negative (Negative); COCAINE SCREEN, URINE Negative (Negative); METHADONE SCREEN, URINE Negative (Negative); OPIATE SCREEN, URINE Negative (Negative)
[2020-02-07 00:34] LABS: ANION GAP 2 mmol/L (5-15); CHLORIDE 105 mmol/L (98-107); CREATININE 1.16 mg/dL (0.7-1.3); TRIGLYCERIDES 118 mg/dL (50-200)
[2020-02-07 00:41] LABS: TROPONIN I 0.183 ng/mL (0.000-0.045)
[2020-02-07] MEDS ORDERED: PHARMACOKINETIC MONITORING MC PRN (01:00)
[2020-02-07] MEDS ORDERED: PHARMACOKINETIC CONSULTATION MC ONE (01:00)
[2020-02-07] MEDS: PROPOFOL 100 ML IV PRN ×7 (01:12→22:01)
[2020-02-07] MEDS: ALBUTEROL/IPRATROPIUM 2.5MG/0.5MG, 3 ML INLINE SCH ×6 (03:10→22:39)
[2020-02-07] MEDS: AMPICILLIN/SULBACTAM 3 GM in SODIUM CHLORIDE 0.9% 100 ML IV SCH ×4 (03:56→21:59)
[2020-02-07] MEDS ORDERED: FUROSEMIDE 40 MG/4 ML IV ONE (04:00)
[2020-02-07 04:36] LABS: BASOPHILS # (AUTO) 0.06 x10^3/uL (0-0.1); BASOPHILS % (AUTO) 1 % (0-1); EOSINOPHILS # (AUTO) 0.04 x10^3/uL (0-0.4); EOSINOPHILS % (AUTO) 0 % (1-7); LYMPHOCYTES # (AUTO) 2.62 x10^3/uL (1-3.4); LYMPHOCYTES % (AUTO) 21 % (22-44); MD NO; MEAN CORPUSCULAR HEMOGLOBIN 29.6 pg (27.5-34.5); MEAN CORPUSCULAR HGB CONC 32.3 g/dL (33.2-36.2); MEAN CORPUSCULAR VOLUME 91.6 fL (81-97); MEAN PLATELET VOLUME 9.3 fL (7.4-10.4); MONOCYTES # (AUTO) 1.23 x10^3/uL (0.2-0.8); MONOCYTES % (AUTO) 10 % (2-9); NEUTROPHILS # (AUTO) 8.44 x10^3/uL (1.8-6.8); NEUTROPHILS % (AUTO) 68 % (42-75); PLATELET COUNT 163 x10^3/uL (130-400); RED BLOOD COUNT 5.53 x10^6/uL (4.38-5.82); RED CELL DISTRIBUTION WIDTH 15.5 % (9.4-14.8)
[2020-02-07 04:46] LABS: CHLORIDE 105 mmol/L (98-107)
[2020-02-07 04:49] LABS: ALANINE AMINOTRANSFERASE 90 U/L (12-78); ANION GAP 4 mmol/L (5-15); CHOLESTEROL, TOTAL 137 mg/dL (140-239); TRIGLYCERIDES 121 mg/dL (50-200); TROPONIN I 0.139 ng/mL (0.000-0.045); VLDL CHOLESTEROL 24 mg/dL (0-25)
[2020-02-07 04:54] LABS: ALKALINE PHOSPHATASE 74 U/L (45-117); BILIRUBIN,TOTAL 0.8 mg/dL (0.2-1.0); CHOL/HDL RATIO 5.3; HDL CHOL % 19 % (26-37); HDL CHOLESTEROL (DIRECT) 26 mg/dL (40-60); LDL CHOLESTEROL,CALCULATED 87 mg/dL (54-169); LDL/HDL RATIO 3.3 (0.5-3.0)
[2020-02-07] MEDS: SODIUM CHLORIDE FLUSH 10ML SYR IVF SCH ×2 (08:07→22:00)
[2020-02-07] MEDS: ENOXAPARIN 30 MG/0.3 ML SQ SCH ×2 (08:08→21:59)
[2020-02-07] MEDS: AZITHROMYCIN 500 MG in SODIUM CHLORIDE 0.9% 250 ML IV SCH (10:37)
[2020-02-07] MEDS: PANTOPRAZOLE 40 MG IV IVPush SCH (10:37)
[2020-02-07] MEDS: LISINOPRIL 10 MG TABLET PO SCH (10:39)
[2020-02-07] MEDS: ASPIRIN 81 MG TABLET CHEW PO SCH (10:39)
[2020-02-07 12:49] LABS: C-REACTIVE PROTEIN, QUANT 4.5 mg/dL (0.02-0.49)
[2020-02-07] MEDS: ASCORBIC ACID 500 MG TABLET PO SCH (16:36)
[2020-02-07] MEDS: VANCOMYCIN 2,400 MG in SODIUM CHLORIDE 0.9% 500 ML IV SCH (19:30)
[2020-02-08] MEDS: LISINOPRIL 10 MG TABLET PO SCH ×3 (00:05→20:08)
[2020-02-08] MEDS: PROPOFOL 100 ML IV PRN ×8 (00:58→20:08)
[2020-02-08] MEDS: ALBUTEROL/IPRATROPIUM 2.5MG/0.5MG, 3 ML INLINE SCH ×6 (03:15→22:11)
[2020-02-08] MEDS: AMPICILLIN/SULBACTAM 3 GM in SODIUM CHLORIDE 0.9% 100 ML IV SCH ×4 (03:46→21:55)
[2020-02-08 04:44] LABS: ALANINE AMINOTRANSFERASE 74 U/L (12-78); ALBUMIN 1.7 g/dL (3.4-5.0); ANION GAP 3 mmol/L (5-15); CALCIUM 7.6 mg/dL (8.5-10.1); CHLORIDE 107 mmol/L (98-107); CREATININE 0.92 mg/dL (0.7-1.3)
[2020-02-08 04:46] LABS: ALKALINE PHOSPHATASE 62 U/L (45-117); BILIRUBIN,TOTAL 0.7 mg/dL (0.2-1.0); TOTAL PROTEIN 6.3 g/dL (6.4-8.2)
[2020-02-08 04:53] LABS: BASOPHILS # (AUTO) 0.06 x10^3/uL (0-0.1); BASOPHILS % (AUTO) 1 % (0-1); EOSINOPHILS # (AUTO) 0.13 x10^3/uL (0-0.4); EOSINOPHILS % (AUTO) 1 % (1-7); LYMPHOCYTES # (AUTO) 1.09 x10^3/uL (1-3.4); LYMPHOCYTES % (AUTO) 10 % (22-44); MD NO; MEAN CORPUSCULAR HEMOGLOBIN 29.3 pg (27.5-34.5); MEAN CORPUSCULAR HGB CONC 32.6 g/dL (33.2-36.2); MEAN CORPUSCULAR VOLUME 89.9 fL (81-97); MEAN PLATELET VOLUME 9.6 fL (7.4-10.4); MONOCYTES # (AUTO) 0.99 x10^3/uL (0.2-0.8); MONOCYTES % (AUTO) 9 % (2-9); NEUTROPHILS # (AUTO) 8.89 x10^3/uL (1.8-6.8); NEUTROPHILS % (AUTO) 80 % (42-75); PLATELET COUNT 173 x10^3/uL (130-400); RED BLOOD COUNT 5.41 x10^6/uL (4.38-5.82); RED CELL DISTRIBUTION WIDTH 15.5 % (9.4-14.8)
[2020-02-08] MEDS ORDERED: MIDAZOLAM 1 MG/ML, 5ML ONE (08:42)
[2020-02-08] MEDS: FENTANYL PF 100 MCG/2ML IVPush PRN ×5 (08:52→21:55)
[2020-02-08] MEDS: ASPIRIN 81 MG TABLET CHEW PO SCH (08:57)
[2020-02-08] MEDS: SODIUM CHLORIDE FLUSH 10ML SYR IVF SCH ×2 (08:57→20:08)
[2020-02-08] MEDS: ASCORBIC ACID 500 MG TABLET PO SCH ×2 (08:57→17:23)
[2020-02-08] MEDS: PANTOPRAZOLE 40 MG IV IVPush SCH (08:57)
[2020-02-08] MEDS: ENOXAPARIN 30 MG/0.3 ML SQ SCH ×2 (08:59→21:55)
[2020-02-08] MEDS: AZITHROMYCIN 500 MG in SODIUM CHLORIDE 0.9% 250 ML IV SCH (09:00)
[2020-02-08] MEDS ORDERED: ICN MIDAZOLAM 0.5 MG/ML IV IVPush PRN (09:00)
[2020-02-08] MEDS ORDERED: MIDAZOLAM 1 MG/ML, 2ML IVPush PRN (09:00)
[2020-02-08] MEDS: ZINC SULFATE 220 MG CAPSULE PO SCH (09:02)
[2020-02-08] MEDS ORDERED: FUROSEMIDE 40 MG/4 ML IV ONE (10:00)
[2020-02-08] MEDS: POTASSIUM CHLORIDE 20 MEQ PACKET PO SCH (17:23)
[2020-02-08] MEDS: FUROSEMIDE 40 MG/4 ML IV SCH (17:23)
[2020-02-08] MEDS: VANCOMYCIN 2,400 MG in SODIUM CHLORIDE 0.9% 500 ML IV SCH (20:08)
[2020-02-09] MEDS: PROPOFOL 100 ML IV PRN ×5 (00:23→22:50)
[2020-02-09] MEDS: FENTANYL PF 100 MCG/2ML IVPush PRN (00:24)
[2020-02-09] MEDS: MIDAZOLAM HCL 50 MG in SODIUM CHLORIDE 0.9% 40 ML IV PRN ×3 (01:18→15:29)
[2020-02-09] MEDS: ALBUTEROL/IPRATROPIUM 2.5MG/0.5MG, 3 ML INLINE SCH ×6 (02:15→22:20)
[2020-02-09] MEDS: AMPICILLIN/SULBACTAM 3 GM in SODIUM CHLORIDE 0.9% 100 ML IV SCH ×4 (03:53→21:06)
[2020-02-09 04:12] LABS: BASOPHILS # (AUTO) 0.01 x10^3/uL (0-0.1); BASOPHILS % (AUTO) 0 % (0-1); EOSINOPHILS # (AUTO) 0.44 x10^3/uL (0-0.4); EOSINOPHILS % (AUTO) 5 % (1-7); LYMPHOCYTES % (AUTO) 12 % (22-44); MD NO; MEAN CORPUSCULAR HEMOGLOBIN 29.2 pg (27.5-34.5); MEAN CORPUSCULAR HGB CONC 32.1 g/dL (33.2-36.2); MONOCYTES # (AUTO) 0.68 x10^3/uL (0.2-0.8); MONOCYTES % (AUTO) 7 % (2-9); NEUTROPHILS # (AUTO) 7.09 x10^3/uL (1.8-6.8); NEUTROPHILS % (AUTO) 76 % (42-75); PLATELET COUNT 183 x10^3/uL (130-400); RED BLOOD COUNT 5.44 x10^6/uL (4.38-5.82); RED CELL DISTRIBUTION WIDTH 15.9 % (9.4-14.8)
[2020-02-09 05:37] LABS: ALBUMIN 1.8 g/dL (3.4-5.0); ANION GAP 4 mmol/L (5-15); CALCIUM 7.9 mg/dL (8.5-10.1); CHLORIDE 105 mmol/L (98-107); CREATININE 0.99 mg/dL (0.7-1.3)
[2020-02-09] MEDS: POTASSIUM CHLORIDE 20 MEQ PACKET PO SCH ×2 (09:05→15:29)
[2020-02-09] MEDS: FUROSEMIDE 40 MG/4 ML IV SCH ×2 (09:05→15:29)
[2020-02-09] MEDS: LISINOPRIL 10 MG TABLET PO SCH ×2 (09:06→21:06)
[2020-02-09] MEDS: ASPIRIN 81 MG TABLET CHEW PO SCH (09:06)
[2020-02-09] MEDS: ASCORBIC ACID 500 MG TABLET PO SCH ×2 (09:06→15:29)
[2020-02-09] MEDS: SODIUM CHLORIDE FLUSH 10ML SYR IVF SCH ×2 (09:06→21:07)
[2020-02-09] MEDS: ZINC SULFATE 220 MG CAPSULE PO SCH (09:07)
[2020-02-09] MEDS: PANTOPRAZOLE 40 MG IV IVPush SCH (09:07)
[2020-02-09] MEDS: ENOXAPARIN 30 MG/0.3 ML SQ SCH ×2 (09:07→21:06)
[2020-02-09] MEDS: AZITHROMYCIN 500 MG in SODIUM CHLORIDE 0.9% 250 ML IV SCH (10:15)
[2020-02-09] MEDS ORDERED: MIDAZOLAM IN 0.9 % SOD.CHLORID 100 ML IV PRN (16:30)
[2020-02-10] MEDS: PROPOFOL 100 ML IV PRN ×5 (01:49→19:45)
[2020-02-10] MEDS: ALBUTEROL/IPRATROPIUM 2.5MG/0.5MG, 3 ML INLINE SCH ×6 (02:10→22:04)
[2020-02-10] MEDS: AMPICILLIN/SULBACTAM 3 GM in SODIUM CHLORIDE 0.9% 100 ML IV SCH ×4 (04:07→20:17)
[2020-02-10 04:33] LABS: BASOPHILS # (AUTO) 0.03 x10^3/uL (0-0.1); BASOPHILS % (AUTO) 0 % (0-1); EOSINOPHILS # (AUTO) 0.46 x10^3/uL (0-0.4); EOSINOPHILS % (AUTO) 7 % (1-7); LYMPHOCYTES # (AUTO) 1.07 x10^3/uL (1-3.4); LYMPHOCYTES % (AUTO) 15 % (22-44); MD NO; MEAN CORPUSCULAR HEMOGLOBIN 29.3 pg (27.5-34.5); MEAN CORPUSCULAR HGB CONC 32.4 g/dL (33.2-36.2); MEAN CORPUSCULAR VOLUME 90.5 fL (81-97); MEAN PLATELET VOLUME 8.9 fL (7.4-10.4); MONOCYTES # (AUTO) 0.54 x10^3/uL (0.2-0.8); MONOCYTES % (AUTO) 8 % (2-9); NEUTROPHILS # (AUTO) 4.97 x10^3/uL (1.8-6.8); NEUTROPHILS % (AUTO) 70 % (42-75); PLATELET COUNT 194 x10^3/uL (130-400); RED BLOOD COUNT 5.37 x10^6/uL (4.38-5.82); RED CELL DISTRIBUTION WIDTH 16.2 % (9.4-14.8)
[2020-02-10] MEDS: ENOXAPARIN 30 MG/0.3 ML SQ SCH ×2 (08:59→20:13)
[2020-02-10] MEDS: POTASSIUM CHLORIDE 20 MEQ PACKET PO SCH ×2 (08:59→17:07)
[2020-02-10] MEDS: FUROSEMIDE 40 MG/4 ML IV SCH ×2 (08:59→17:07)
[2020-02-10] MEDS: ZINC SULFATE 220 MG CAPSULE PO SCH (08:59)
[2020-02-10] MEDS: PANTOPRAZOLE 40 MG IV IVPush SCH (08:59)
[2020-02-10] MEDS: SODIUM CHLORIDE FLUSH 10ML SYR IVF SCH ×2 (09:00→20:10)
[2020-02-10] MEDS: ASPIRIN 81 MG TABLET CHEW PO SCH (09:00)
[2020-02-10] MEDS: ASCORBIC ACID 500 MG TABLET PO SCH ×2 (09:00→17:07)
[2020-02-10] MEDS: LISINOPRIL 10 MG TABLET PO SCH ×2 (09:00→20:11)
[2020-02-10] MEDS: AZITHROMYCIN 500 MG in SODIUM CHLORIDE 0.9% 250 ML IV SCH (09:01)
[2020-02-10] MEDS: DEXMEDETOMIDINE 400 MCG in SODIUM CHLORIDE 0.9% 96 ML IV PRN ×2 (11:29→19:45)
[2020-02-10] MEDS: LACTULOSE 20 GM/30 ML UDC NG PRN (17:07)
[2020-02-10] MEDS: DEXMEDETOMIDINE 1,000 MCG in SODIUM CHLORIDE 0.9% 240 ML IV PRN (21:45)
[2020-02-11] MEDS: PROPOFOL 100 ML IV PRN ×4 (00:42→22:04)
[2020-02-11] MEDS: DEXMEDETOMIDINE 1,000 MCG in SODIUM CHLORIDE 0.9% 240 ML IV PRN ×2 (03:14→22:29)
[2020-02-11] MEDS: AMPICILLIN/SULBACTAM 3 GM in SODIUM CHLORIDE 0.9% 100 ML IV SCH ×4 (03:14→20:23)
[2020-02-11] MEDS: ALBUTEROL/IPRATROPIUM 2.5MG/0.5MG, 3 ML INLINE SCH ×6 (03:45→22:40)
[2020-02-11 04:07] LABS: BASOPHILS # (AUTO) 0.04 x10^3/uL (0-0.1); BASOPHILS % (AUTO) 1 % (0-1); EOSINOPHILS # (AUTO) 0.36 x10^3/uL (0-0.4); EOSINOPHILS % (AUTO) 5 % (1-7); LYMPHOCYTES # (AUTO) 1.11 x10^3/uL (1-3.4); LYMPHOCYTES % (AUTO) 14 % (22-44); MD NO; MEAN CORPUSCULAR HEMOGLOBIN 28.8 pg (27.5-34.5); MEAN CORPUSCULAR HGB CONC 32.1 g/dL (33.2-36.2); MEAN CORPUSCULAR VOLUME 89.9 fL (81-97); MEAN PLATELET VOLUME 9.2 fL (7.4-10.4); MONOCYTES # (AUTO) 0.54 x10^3/uL (0.2-0.8); MONOCYTES % (AUTO) 7 % (2-9); NEUTROPHILS # (AUTO) 5.92 x10^3/uL (1.8-6.8); NEUTROPHILS % (AUTO) 74 % (42-75); PLATELET COUNT 202 x10^3/uL (130-400); RED BLOOD COUNT 5.71 x10^6/uL (4.38-5.82); RED CELL DISTRIBUTION WIDTH 15.7 % (9.4-14.8)
[2020-02-11] MEDS: LISINOPRIL 10 MG TABLET PO SCH ×3 (08:44→20:18)
[2020-02-11] MEDS: ENOXAPARIN 30 MG/0.3 ML SQ SCH ×2 (08:44→20:17)
[2020-02-11] MEDS: PANTOPRAZOLE 40 MG IV IVPush SCH (08:44)
[2020-02-11] MEDS: AZITHROMYCIN 500 MG in SODIUM CHLORIDE 0.9% 250 ML IV SCH (08:45)
[2020-02-11] MEDS: ASCORBIC ACID 500 MG TABLET PO SCH ×2 (08:45→16:26)
[2020-02-11] MEDS: FUROSEMIDE 40 MG/4 ML IV SCH ×2 (08:45→16:25)
[2020-02-11] MEDS: ZINC SULFATE 220 MG CAPSULE PO SCH (08:45)
[2020-02-11] MEDS: POTASSIUM CHLORIDE 20 MEQ PACKET PO SCH ×2 (08:45→16:25)
[2020-02-11] MEDS: ASPIRIN 81 MG TABLET CHEW PO SCH (08:45)
[2020-02-11] MEDS: SODIUM CHLORIDE FLUSH 10ML SYR IVF SCH ×2 (08:46→20:16)
[2020-02-11] MEDS: QUETIAPINE 25MG TABLET NG SCH ×2 (10:30→16:25)
[2020-02-12] MEDS: PROPOFOL 100 ML IV PRN ×5 (01:23→20:16)
[2020-02-12] MEDS: QUETIAPINE 25MG TABLET NG SCH ×3 (02:02→16:57)
[2020-02-12] MEDS: ALBUTEROL/IPRATROPIUM 2.5MG/0.5MG, 3 ML INLINE SCH ×6 (02:30→22:35)
[2020-02-12] MEDS: AMPICILLIN/SULBACTAM 3 GM in SODIUM CHLORIDE 0.9% 100 ML IV SCH (03:52)
[2020-02-12] MEDS: DEXMEDETOMIDINE 1,000 MCG in SODIUM CHLORIDE 0.9% 240 ML IV PRN ×4 (03:54→22:01)
[2020-02-12 04:15] LABS: BASOPHILS # (AUTO) 0.02 x10^3/uL (0-0.1); BASOPHILS % (AUTO) 0 % (0-1); EOSINOPHILS # (AUTO) 0.41 x10^3/uL (0-0.4); EOSINOPHILS % (AUTO) 5 % (1-7); LYMPHOCYTES # (AUTO) 1.55 x10^3/uL (1-3.4); LYMPHOCYTES % (AUTO) 18 % (22-44); MD NO; MEAN CORPUSCULAR HGB CONC 32.2 g/dL (33.2-36.2); MEAN CORPUSCULAR VOLUME 89.9 fL (81-97); MEAN PLATELET VOLUME 8.6 fL (7.4-10.4); MONOCYTES # (AUTO) 0.64 x10^3/uL (0.2-0.8); MONOCYTES % (AUTO) 8 % (2-9); NEUTROPHILS # (AUTO) 5.84 x10^3/uL (1.8-6.8); NEUTROPHILS % (AUTO) 69 % (42-75); PLATELET COUNT 200 x10^3/uL (130-400); RED BLOOD COUNT 5.69 x10^6/uL (4.38-5.82); RED CELL DISTRIBUTION WIDTH 15.5 % (9.4-14.8)
[2020-02-12] MEDS: FUROSEMIDE 40 MG/4 ML IV SCH ×2 (08:59→16:57)
[2020-02-12] MEDS: ASPIRIN 81 MG TABLET CHEW PO SCH (08:59)
[2020-02-12] MEDS: LISINOPRIL 10 MG TABLET PO SCH ×2 (08:59→20:24)
[2020-02-12] MEDS: ASCORBIC ACID 500 MG TABLET PO SCH ×2 (08:59→20:24)
[2020-02-12] MEDS: POTASSIUM CHLORIDE 20 MEQ PACKET PO SCH ×2 (08:59→16:57)
[2020-02-12] MEDS: ZINC SULFATE 220 MG CAPSULE PO SCH (09:00)
[2020-02-12] MEDS ORDERED: MIDAZOLAM 1 MG/ML, 2ML IV ONE (09:00)
[2020-02-12] MEDS: SODIUM CHLORIDE FLUSH 10ML SYR IVF SCH ×2 (09:01→20:25)
[2020-02-12] MEDS: PANTOPRAZOLE 40 MG IV IVPush SCH (09:01)
[2020-02-12] MEDS ORDERED: BISACODYL 5 MG EC TABLET PO PRN (09:30)
[2020-02-12] MEDS ORDERED: MAGNESIUM HYDROXIDE 8%, 30ML UDC PO PRN (09:30)
[2020-02-12] MEDS: ENOXAPARIN 30 MG/0.3 ML SQ SCH ×2 (13:31→20:25)
[2020-02-12] MEDS: DOXYCYCLINE 100 MG in DEXTROSE 5% 250 ML IV SCH (16:56)
[2020-02-13] MEDS: PROPOFOL 100 ML IV PRN ×7 (00:14→20:17)
[2020-02-13] MEDS: QUETIAPINE 25MG TABLET NG SCH ×3 (00:15→20:16)
[2020-02-13] MEDS: DOXYCYCLINE 100 MG in DEXTROSE 5% 250 ML IV SCH ×2 (00:15→13:15)
[2020-02-13] MEDS: ALBUTEROL/IPRATROPIUM 2.5MG/0.5MG, 3 ML INLINE SCH ×6 (02:30→22:24)
[2020-02-13] MEDS: FENTANYL PF 100 MCG/2ML IVPush PRN (02:56)
[2020-02-13] MEDS: DEXMEDETOMIDINE 1,000 MCG in SODIUM CHLORIDE 0.9% 240 ML IV PRN ×4 (03:42→20:37)
[2020-02-13 04:51] LABS: BASOPHILS # (AUTO) 0.09 x10^3/uL (0-0.1); BASOPHILS % (AUTO) 1 % (0-1); EOSINOPHILS # (AUTO) 0.52 x10^3/uL (0-0.4); EOSINOPHILS % (AUTO) 6 % (1-7); LYMPHOCYTES # (AUTO) 1.54 x10^3/uL (1-3.4); LYMPHOCYTES % (AUTO) 16 % (22-44); MD NO; MEAN CORPUSCULAR HEMOGLOBIN 29.3 pg (27.5-34.5); MEAN CORPUSCULAR HGB CONC 32.5 g/dL (33.2-36.2); MEAN PLATELET VOLUME 9.3 fL (7.4-10.4); MONOCYTES # (AUTO) 0.74 x10^3/uL (0.2-0.8); MONOCYTES % (AUTO) 8 % (2-9); NEUTROPHILS # (AUTO) 6.52 x10^3/uL (1.8-6.8); NEUTROPHILS % (AUTO) 69 % (42-75); PLATELET COUNT 212 x10^3/uL (130-400); RED BLOOD COUNT 5.78 x10^6/uL (4.38-5.82); RED CELL DISTRIBUTION WIDTH 15.6 % (9.4-14.8)
[2020-02-13 07:41] LABS: ALANINE AMINOTRANSFERASE 191 U/L (12-78); ALBUMIN 2.2 g/dL (3.4-5.0); ANION GAP 5 mmol/L (5-15); CHLORIDE 104 mmol/L (98-107); CREATININE 0.84 mg/dL (0.7-1.3)
[2020-02-13 07:43] LABS: ALKALINE PHOSPHATASE 67 U/L (45-117); BILIRUBIN,TOTAL 0.5 mg/dL (0.2-1.0); TOTAL PROTEIN 8.1 g/dL (6.4-8.2)
[2020-02-13] MEDS: FUROSEMIDE 40 MG/4 ML IV SCH ×2 (09:38→11:30)
[2020-02-13] MEDS: POTASSIUM CHLORIDE 20 MEQ PACKET PO SCH ×2 (09:38→17:42)
[2020-02-13] MEDS: ASPIRIN 81 MG TABLET CHEW PO SCH (09:39)
[2020-02-13] MEDS: ASCORBIC ACID 500 MG TABLET PO SCH ×2 (09:40→17:00)
[2020-02-13] MEDS: LISINOPRIL 10 MG TABLET PO SCH ×2 (09:40→20:14)
[2020-02-13] MEDS: PANTOPRAZOLE 40 MG IV IVPush SCH (10:04)
[2020-02-13] MEDS: ENOXAPARIN 30 MG/0.3 ML SQ SCH ×2 (10:04→20:17)
[2020-02-13] MEDS: SODIUM CHLORIDE FLUSH 10ML SYR IVF SCH ×2 (10:08→20:16)
[2020-02-13] MEDS ORDERED: QUETIAPINE 25MG TABLET NG ONE (13:00)
[2020-02-13] MEDS: ZINC SULFATE 220 MG CAPSULE PO SCH (13:15)
[2020-02-13] MEDS: LACTULOSE 20 GM/30 ML UDC NG PRN (17:41)
[2020-02-14] MEDS: PROPOFOL 100 ML IV PRN ×3 (00:45→08:04)
[2020-02-14] MEDS: DOXYCYCLINE 100 MG in DEXTROSE 5% 250 ML IV SCH ×2 (00:45→14:12)
[2020-02-14] MEDS: DEXMEDETOMIDINE 1,000 MCG in SODIUM CHLORIDE 0.9% 240 ML IV PRN ×3 (01:51→17:38)
[2020-02-14] MEDS: ALBUTEROL/IPRATROPIUM 2.5MG/0.5MG, 3 ML INLINE SCH ×2 (02:47→06:40)
[2020-02-14] MEDS: QUETIAPINE 25MG TABLET NG SCH ×3 (03:52→21:26)
[2020-02-14 05:24] LABS: BASOPHILS # (AUTO) 0.05 x10^3/uL (0-0.1); BASOPHILS % (AUTO) 1 % (0-1); EOSINOPHILS # (AUTO) 0.54 x10^3/uL (0-0.4); EOSINOPHILS % (AUTO) 6 % (1-7); LYMPHOCYTES # (AUTO) 1.71 x10^3/uL (1-3.4); LYMPHOCYTES % (AUTO) 19 % (22-44); MD NO; MEAN CORPUSCULAR HEMOGLOBIN 29.2 pg (27.5-34.5); MEAN CORPUSCULAR HGB CONC 32.6 g/dL (33.2-36.2); MEAN CORPUSCULAR VOLUME 89.6 fL (81-97); MONOCYTES # (AUTO) 0.73 x10^3/uL (0.2-0.8); MONOCYTES % (AUTO) 8 % (2-9); NEUTROPHILS # (AUTO) 5.92 x10^3/uL (1.8-6.8); NEUTROPHILS % (AUTO) 66 % (42-75); PLATELET COUNT 210 x10^3/uL (130-400); RED BLOOD COUNT 5.68 x10^6/uL (4.38-5.82)
[2020-02-14 07:35] LABS: ALBUMIN 2.1 g/dL (3.4-5.0); ANION GAP 7 mmol/L (5-15); CALCIUM 8.5 mg/dL (8.5-10.1); CHLORIDE 104 mmol/L (98-107)
[2020-02-14 07:39] LABS: ALANINE AMINOTRANSFERASE 179 U/L (12-78); ALKALINE PHOSPHATASE 66 U/L (45-117); BILIRUBIN,TOTAL 0.5 mg/dL (0.2-1.0); CREATININE 0.87 mg/dL (0.7-1.3); TOTAL PROTEIN 7.9 g/dL (6.4-8.2)
[2020-02-14] MEDS: ASCORBIC ACID 500 MG TABLET PO SCH ×2 (08:00→16:41)
[2020-02-14] MEDS: ZINC SULFATE 220 MG CAPSULE PO SCH (08:43)
[2020-02-14] MEDS: POTASSIUM CHLORIDE 20 MEQ PACKET PO SCH ×2 (08:43→16:41)
[2020-02-14] MEDS: LISINOPRIL 10 MG TABLET PO SCH ×2 (08:43→21:27)
[2020-02-14] MEDS: ASPIRIN 81 MG TABLET CHEW PO SCH (08:43)
[2020-02-14] MEDS: ENOXAPARIN 30 MG/0.3 ML SQ SCH ×2 (08:44→21:27)
[2020-02-14] MEDS: PANTOPRAZOLE 40 MG IV IVPush SCH (08:44)
[2020-02-14] MEDS: SODIUM CHLORIDE FLUSH 10ML SYR IVF SCH ×2 (08:45→21:27)
[2020-02-14] MEDS: FUROSEMIDE 40 MG/4 ML IV SCH (08:45)
[2020-02-14] MEDS ORDERED: ALBUTEROL/IPRATROPIUM 2.5MG/0.5MG, 3 ML NPPB PRN (10:30)
[2020-02-14] MEDS ORDERED: ALBUTEROL/IPRATROPIUM 2.5MG/0.5MG, 3 ML NPPB SCH (11:00)
[2020-02-14 12:33] LABS: CLOSTRIDIUM DIFFICILE ANTIGEN NEGATIVE; CLOSTRIDIUM DIFFICILE TOXIN NEGATIVE (Negative)
[2020-02-14] MEDS ORDERED: DIPHENHYDRAMINE 50 MG/ML, 1ML IVPush ONE (14:00)
[2020-02-14] MEDS: ALBUTEROL-IPRATROPIUM MDI INH INH SCH ×2 (18:07→21:27)
[2020-02-15] MEDS ORDERED: ZIPRASIDONE 20 MG INJ IM ONE
[2020-02-15] MEDS: DOXYCYCLINE 100 MG in DEXTROSE 5% 250 ML IV SCH (01:42)
[2020-02-15] MEDS: QUETIAPINE 25MG TABLET NG SCH ×3 (04:58→20:07)
[2020-02-15] MEDS: ACETAMINOPHEN 325 MG TABLET PO PRN ×2 (04:58→15:43)
[2020-02-15] MEDS: ALBUTEROL-IPRATROPIUM MDI INH INH SCH ×4 (06:03→21:00)
[2020-02-15] MEDS: SODIUM CHLORIDE FLUSH 10ML SYR IVF SCH ×2 (08:31→20:07)
[2020-02-15] MEDS: FUROSEMIDE 40 MG/4 ML IV SCH (08:31)
[2020-02-15] MEDS: PANTOPRAZOLE 40 MG IV IVPush SCH (08:31)
[2020-02-15] MEDS: ASCORBIC ACID 500 MG TABLET PO SCH ×2 (08:45→17:00)
[2020-02-15] MEDS: ASPIRIN 81 MG TABLET CHEW PO SCH (08:45)
[2020-02-15] MEDS: ZINC SULFATE 220 MG CAPSULE PO SCH (08:45)
[2020-02-15] MEDS: LISINOPRIL 10 MG TABLET PO SCH ×2 (08:45→20:07)
[2020-02-15] MEDS: POTASSIUM CHLORIDE 20 MEQ PACKET PO SCH ×2 (08:46→17:00)
[2020-02-15] MEDS: ENOXAPARIN 30 MG/0.3 ML SQ SCH (08:46)
[2020-02-15] MEDS: ENOXAPARIN 40 MG/0.4 ML SQ SCH (13:30)
[2020-02-15] MEDS ORDERED: ZIPRASIDONE 20 MG INJ IM PRN (17:00)
[2020-02-16 04:30] LABS: BASOPHILS # (AUTO) 0.03 x10^3/uL (0-0.1); BASOPHILS % (AUTO) 0 % (0-1); EOSINOPHILS # (AUTO) 0.16 x10^3/uL (0-0.4); EOSINOPHILS % (AUTO) 2 % (1-7); LYMPHOCYTES # (AUTO) 1.64 x10^3/uL (1-3.4); LYMPHOCYTES % (AUTO) 19 % (22-44); MD NO; MEAN CORPUSCULAR HEMOGLOBIN 29.5 pg (27.5-34.5); MEAN CORPUSCULAR HGB CONC 32.8 g/dL (33.2-36.2); MEAN CORPUSCULAR VOLUME 89.8 fL (81-97); MEAN PLATELET VOLUME 9.5 fL (7.4-10.4); MONOCYTES # (AUTO) 1.01 x10^3/uL (0.2-0.8); MONOCYTES % (AUTO) 12 % (2-9); NEUTROPHILS # (AUTO) 5.78 x10^3/uL (1.8-6.8); NEUTROPHILS % (AUTO) 67 % (42-75); PLATELET COUNT 220 x10^3/uL (130-400); RED BLOOD COUNT 5.52 x10^6/uL (4.38-5.82); RED CELL DISTRIBUTION WIDTH 16.1 % (9.4-14.8)
[2020-02-16 04:41] LABS: ALANINE AMINOTRANSFERASE 172 U/L (12-78); ALBUMIN 2.4 g/dL (3.4-5.0); ANION GAP 5 mmol/L (5-15); CALCIUM 9.1 mg/dL (8.5-10.1); CHLORIDE 107 mmol/L (98-107); CREATININE 0.97 mg/dL (0.7-1.3)
[2020-02-16 04:44] LABS: ALKALINE PHOSPHATASE 71 U/L (45-117); BILIRUBIN,TOTAL 1.2 mg/dL (0.2-1.0); TOTAL PROTEIN 8.2 g/dL (6.4-8.2)
[2020-02-16] MEDS: QUETIAPINE 25MG TABLET NG SCH ×2 (05:22→11:50)
[2020-02-16] MEDS: ALBUTEROL-IPRATROPIUM MDI INH INH SCH ×3 (05:22→16:43)
[2020-02-16] MEDS ORDERED: PANTOPRAZOLE 40MG TABLET PO SCH (06:00)
[2020-02-16 08:00] VITALS: BP 121/68
[2020-02-16 09:00] VITALS: BP 102/61
[2020-02-16] MEDS: FUROSEMIDE 40 MG/4 ML IV SCH (09:00)
[2020-02-16] MEDS: SODIUM CHLORIDE FLUSH 10ML SYR IVF SCH (09:00)
[2020-02-16] MEDS: POTASSIUM CHLORIDE 20 MEQ PACKET PO SCH (09:13)
[2020-02-16] MEDS: ASCORBIC ACID 500 MG TABLET PO SCH ×2 (09:13→16:42)
[2020-02-16] MEDS: LISINOPRIL 10 MG TABLET PO SCH (09:14)
[2020-02-16] MEDS: ZINC SULFATE 220 MG CAPSULE PO SCH (09:14)
[2020-02-16] MEDS: ASPIRIN 81 MG TABLET CHEW PO SCH (09:14)
[2020-02-16] MEDS: ENOXAPARIN 40 MG/0.4 ML SQ SCH (11:50)
[2020-02-16 12:00] VITALS: BP 132/83
[2020-02-16 14:00] VITALS: BP 108/67
[2020-02-16] MEDS ORDERED: LORazepam 2 MG/ML, 1ML IVPush ONE (15:00)
[2020-02-16] MEDS ORDERED: ENOXAPARIN 30 MG/0.3 ML SQ SCH (16:00)
[2020-02-17] MEDS ORDERED: FUROSEMIDE 40 MG TABLET PO SCH (09:00)
== END 2020-02-16 17:15 | disposition left against medical advice (07) | DRG 870 ==
LOC: ED 16:39 → EDIP 18:13 → ICU 02-07 00:44
PROVIDERS: ADMIT Family Medicine; ATTEND Internal Medicine
PROC: 5A1955Z Respiratory Ventilation, Greater than 96 Consecutive Hours (ICD-10-PCS; principal; 2020-02-06)
PROC: 0BH17EZ Insertion of Endotracheal Airway into Trachea, Via Natural or Artificial Opening (ICD-10-PCS; 2020-02-06)
PROC: 02HV33Z Insertion of Infusion Device into Superior Vena Cava, Percutaneous Approach (ICD-10-PCS; 2020-02-06)
PROC: B548ZZA Ultrasonography of Superior Vena Cava, Guidance (ICD-10-PCS; 2020-02-06)
DX: A41.9 Sepsis, unspecified organism (principal); G93.41 Metabolic encephalopathy; J18.9 Pneumonia, unspecified organism; J81.0 Acute pulmonary edema; J96.01 Acute respiratory failure with hypoxia; J96.02 Acute respiratory failure with hypercapnia; L03.115 Cellulitis of right lower limb; Z68.41 Body mass index [BMI] 40.0-44.9, adult; E87.1 Hypo-osmolality and hyponatremia; I16.1 Hypertensive emergency; J44.0 Chronic obstructive pulmonary disease with (acute) lower respiratory infection; J81.1 Chronic pulmonary edema; B19.20 Unspecified viral hepatitis C without hepatic coma; D75.1 Secondary polycythemia; E66.9 Obesity, unspecified; E87.5 Hyperkalemia; E87.70 Fluid overload, unspecified; F15.10 Other stimulant abuse, uncomplicated; F17.200 Nicotine dependence, unspecified, uncomplicated; F41.1 Generalized anxiety disorder; F60.3 Borderline personality disorder; I10 Essential (primary) hypertension; I89.0 Lymphedema, not elsewhere classified; Z78.1 Physical restraint status; Z91.19 Patient's noncompliance with other medical treatment and regimen; Z20.828 Contact with and (suspected) exposure to other viral communicable diseases; Z53.29 Procedure and treatment not carried out because of patient's decision for other reasons
CPT/HCPCS: 36415; 36556; 36600; 71045; 80048; 80053; 80061; 80074; 80307; 81001; 82040; 82533; 82803; 82962; 83605; 83615; 83735; 83880; 84100; 84145; 84478; 84484; 85025; 85379; 86140; 87040; 87070; 87081; 87205; 87324; 87521; 87635; 87806; 93005; 93308; 93321; 93325; 94002; 94003; 94640; 96374; 96375; G0378; J0295; J0456; J0696; J1650; J1940; J2250; J2704; J3010; J3370; J3411; J3486; J7060; C9113; G0475; J0360; J1200; J2060; J2270; J2310; J7040; J7050; U0001-CS; U0003-CS

== ENCOUNTER 2020-12-08 10:42 | Emergency (ER) | payer MEDICAID ==
[~2020-12-08] VITALS: Ht 165.1 cm; Wt 105.6 kg
[~2020-12-08 10:42] MED LIST changes: -ETOMIDATE 20 MG/10 ML ONE; -PROPOFOL 100 ML IV ONE; -ROCURONIUM 10 MG/ML,10ML ONE
[2020-12-08 10:48] VITALS: BP 169/96
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
[2020-12-08] MEDS ORDERED: SODIUM CHLORIDE 0.9% 1,000ML IVBOLUS ONE (11:00)
--- NOTE | 2020-12-08 11:03 | NUR ---
requested records from [facility]
--- NOTE | 2020-12-08 11:10 | NUR ---
lab has been to bedside to attempt draw. pt is agitated and uncooperative with research laboratory specialist. pt states he "sees bugs" on himself. pt making motions that he is pulling bugs off of his gown and throwing them at the cardiac cath lab radiology technologist pt is very agitated
--- NOTE | 2020-12-08 11:20 | NUR ---
US at bedside.
[2020-12-08] MEDS ORDERED: LORazepam 2 MG/ML, 1ML IM ONE (11:30)
[2020-12-08] MEDS ORDERED: DIPHENHYDRAMINE 50 MG/ML, 1ML IM ONE (11:30)
[2020-12-08] MEDS ORDERED: HALOPERIDOL 5 MG/ML IM PRN (11:30)
--- NOTE | 2020-12-08 11:30 | NUR ---
pt has been cooperative with US tech at bedside
[2020-12-08] MEDS ORDERED: DIPHENHYDRAMINE 50 MG/ML, 1ML ONE (11:37)
[2020-12-08] MEDS ORDERED: HALOPERIDOL 5 MG/ML ONE (11:38)
[2020-12-08] MEDS ORDERED: LORazepam 2 MG/ML, 1ML ONE (11:39)
--- NOTE | 2020-12-08 11:45 | NUR ---
carpenter labor supervisor at bedside to attempt lab draw, unsuccessful pt reports that he does not want more neddle-sticks
--- NOTE | 2020-12-08 11:48 | NUR ---
received records from [facility]
--- NOTE | 2020-12-08 11:55 | NUR ---
orders have been recieved for IM inection for sedation. attempted pt education. pt states that he de la rosa snot want to be sedated. pt reports that he was sedated at [facility] and he does nto want to be sedated again attempted to give pt education regarding pt agitattion and restlessness, as well as pt elevated B/P and HR rate. pt still declines IM injection at this time. pt cooperative with EKG ta bedside
--- NOTE | 2020-12-08 12:05 | NUR ---
IV attempt, unsuccessful. when needle placed, pt states that he wants the needle removed. pt states that he does nto want IV medications. attempted again to give pt education regarding POC. pt again declines IV, declines medication. pt states "I want to get dressed and I want to go home" pt is aware of where he is and knows his name. pt states that he does not want to stay in the ER any longer. Dr Knowles notified
--- NOTE | 2020-12-08 12:15 | NUR ---
pt is able to dress himself. pt is ambualtoty without assistance. pt javier has been brought to the department by EMS and is in the ambulance vestibule. pt belongings bagged and pt offered socks. pt declines, stating that he has socks and does not need another pain. pt ambualted out of department with security associate. pt spekaing full sentences. pt has bene made aware that he can return at any time for treatment if he chooses. pt verbalized understanding and states "you have a beautiful day, because I will"
== END 2020-12-08 12:43 | disposition left against medical advice (07) ==
LOC: ED 12:18
DX: S91.312A Laceration without foreign body, left foot, initial encounter (principal); S91.311A Laceration without foreign body, right foot, initial encounter; F15.10 Other stimulant abuse, uncomplicated; I11.0 Hypertensive heart disease with heart failure; I50.9 Heart failure, unspecified; J44.9 Chronic obstructive pulmonary disease, unspecified; Z91.14 Patient's other noncompliance with medication regimen; W22.8XXA Striking against or struck by other objects, initial encounter; Y93.89 Activity, other specified; Y92.89 Other specified places as the place of occurrence of the external cause; Y99.8 Other external cause status
CPT/HCPCS: 36415; 87040; 93005; 93970; 99285